=== PATIENT | female | born 1930 | race Caucasian/White ===

== ENCOUNTER 2017-09-05 08:00 | Outpatient (CLI) | payer MEDICARE, OTHER ==
[2017-09-05 19:12] LABS: BASOPHILS # (AUTO) 0.1 10^3/uL (0.0-0.1); BASOPHILS % (AUTO) 0.7 %; EOSINOPHILS # (AUTO) 0.1 10^3/uL (0.0-0.7); EOSINOPHILS % (AUTO) 1.7 %; HCT - HEMATOCRIT 43.3 % (37.0-47.0); HGB - HEMOGLOBIN 14.3 g/dL (12.0-16.0); LYMPHOCYTES # (AUTO) 2.8 10^3/uL (1.5-3.5); LYMPHOCYTES % (AUTO) 33.5 %; MEAN CORPUSCULAR HEMOGLOBIN 31.5 pg (27.0-31.0); MEAN CORPUSCULAR VOLUME 95.6 fL (81.0-99.0); MEAN PLATELET VOLUME 8.2 fL (7.9-10.8); MONOCYTES # (AUTO) 0.8 10^3/uL (0.0-1.0); MONOCYTES % (AUTO) 9.9 %; NEUTROPHILS # (AUTO) 4.5 10^3/uL (1.5-6.6); NEUTROPHILS % (AUTO) 54.2 %; NUCLEATED RED BLOOD CELLS AUTO 0.1 /100WBC; RED BLOOD COUNT 4.53 10^6/uL (4.20-5.40); RED CELL DISTRIBUTION WIDTH 13.7 % (12.0-15.0); UNCORRECTED WHITE BLOOD COUNT 8.3 x10^3/uL; WHITE BLOOD COUNT 8.3 x10^3/uL (4.8-10.8)
[2017-09-05 19:37] LABS: ALBUMIN/GLOBULIN RATIO 1.1 (1.0-2.2); BILIRUBIN,TOTAL 0.3 mg/dL (0.2-1.0); BUN - BLOOD UREA NITROGEN 17 mg/dL (6-20); CARBON DIOXIDE - CO2 26 mmol/L (21-32); CHLORIDE 100 mmol/L (101-111); CHOL/HDL RATIO 2.8 (<4.4); CHOLESTEROL 196 mg/dL; CREATININE 0.9 mg/dL (0.4-1.0); GFR - MDRD 59 (>89); GLUCOSE 74 mg/dL (70-100); HDL CHOLESTEROL 71 mg/dL; POTASSIUM 3.9 mmol/L (3.5-5.0); SODIUM 135 mmol/L (135-145); TOTAL PROTEIN 7.2 g/dL (6.7-8.2); TRIGLYCERIDES 263 mg/dL; VLDL CHOLESTEROL 53 mg/dL
== END 2017-09-05 08:01 | disposition home or self-care (01) ==
LOC: LAB.WCP 08:00
PROVIDERS: ATTEND Family Medicine
DX: K21.9 Gastro-esophageal reflux disease without esophagitis (principal); E78.5 Hyperlipidemia, unspecified
CPT/HCPCS: 36415; 80053; 80061; 85025

== ENCOUNTER 2017-09-30 08:37 | Outpatient (CLI) | payer MEDICARE, OTHER ==
--- NOTE | 2017-09-30 09:47 | Ultrasound Report ---
RIGHT LEG VENOUS DUPLEX: 09/30/2017 CLINICAL INDICATION: Varicose veins. TECHNIQUE: Real-time sonographic vascular imaging was performed by the toys inspector through the right lower extremity utilizing both color flow and Doppler spectral analysis. Multiple customer service representative teller static images were saved for review. FINDINGS: A right lower extremity venous sonogram is performed revealing the common femoral, superficial femoral, profunda femoris, and popliteal veins to be adequately visualized without intraluminal defects. There is normal venous compression, augmentation, phasicity, and spontaneity of venous flow. In the calf, the visualized more cephalad portions of posterior tibial and peroneal veins are grossly compressible, without filling defects. Superficial varicosities are seen, without evidence of thrombosis. IMPRESSION: NO EVIDENCE OF DEEP VENOUS THROMBOSIS. JOB #: [id number] EXT JOB #: [id number] MTDIveth
== END 2017-09-30 08:38 | disposition home or self-care (01) ==
LOC: DI 08:37
PROVIDERS: ATTEND Family Medicine
DX: I83.91 Asymptomatic varicose veins of right lower extremity (principal)

== ENCOUNTER 2017-11-23 09:09 | Emergency (ER) | payer MEDICARE, OTHER ==
[2017-11-23 09:45] LABS: BASOPHILS % (AUTO) 0.6 %; EOSINOPHILS # (AUTO) 0.1 10^3/uL (0.0-0.7); EOSINOPHILS % (AUTO) 1.8 %; HGB - HEMOGLOBIN 13.8 g/dL (12.0-16.0); LYMPHOCYTES # (AUTO) 1.8 10^3/uL (1.5-3.5); LYMPHOCYTES % (AUTO) 30.5 %; MEAN CORPUSCULAR HEMOGLOBIN 31.6 pg (27.0-31.0); MEAN CORPUSCULAR HGB CONC 34.3 g/dL (32.0-36.0); MEAN CORPUSCULAR VOLUME 92.2 fL (81.0-99.0); MEAN PLATELET VOLUME 7.5 fL (7.9-10.8); MONOCYTES # (AUTO) 0.4 10^3/uL (0.0-1.0); MONOCYTES % (AUTO) 7.6 %; NEUTROPHILS # (AUTO) 3.4 10^3/uL (1.5-6.6); NEUTROPHILS % (AUTO) 59.5 %; PLT - PLATELET COUNT 184 10^3/uL (130-450); RED BLOOD COUNT 4.38 10^6/uL (4.20-5.40); RED CELL DISTRIBUTION WIDTH 13.3 % (12.0-15.0); WHITE BLOOD COUNT 5.8 x10^3/uL (4.8-10.8)
--- NOTE | 2017-11-23 09:52 | ED Physician Documentation ---
History of Present Illness - Stated complaint Stated Complaint: DIZZY - Chief complaint Chief Complaint: General - History obtained from History obtained from: Patient - History of Present Illness Timing: How many weeks ago (2) - Additonal information Additional information: 87-year-old female has not been feeling well since the day before . So about 2 weeks of not feeling well she did have some diarrhea for 2 days and she has developed some dizziness that is worse today than yesterday. She thought she had been drinking enough fluids to stay hydrated. Review of Systems Constitutional: reports: Myalgias, Fatigue. denies: Fever Eyes: denies: Decreased vision Ears: denies: Ear pain Nose: reports: Congestion Throat: denies: Sore throat Cardiac: denies: Chest pain / pressure, Palpitations Respiratory: reports: Cough. denies: Dyspnea GI: reports: Diarrhea. denies: Abdominal Pain, Nausea, Vomiting : denies: Dysuria, Frequency Skin: denies: Rash Musculoskeletal: denies: Neck pain, Back pain, Extremity pain Neurologic: reports: Generalized weakness. 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 : Incontinence Musculoskeletal: Osteoarthritis, Osteoporosis Derm: None - Past Surgical History Past Surgical History: Yes General: Cholecystectomy Ortho: Knee replacement /BUSINESS TECHNOLOGY PROFESSOR: Hysterectomy - Present Medications Home Medications: Ambulatory Orders Medication Instructions Recorded Confirmed Estrogens, Conjugated [Premarin] 0.625 mg ORAL DAILY 10/25/15 10/25/15 Omeprazole [PriLOSEC] 20 mg ORAL BID 10/25/15 10/25/15 Oxybutynin [Oxytrol] 1 patch TOP DAILY 10/25/15 10/25/15 Simvastatin 10 mg ORAL QPM 10/25/15 10/25/15 Cefdinir 300 mg PO BID #14 capsule 11/23/17 - Allergies Allergies/Adverse Reactions: Allergies Allergy/AdvReac Type Severity Reaction Status Date / Time cabbage Allergy Unknown Verified 11/23/17 12:48 ciprofloxacin Allergy Unknown Verified 11/23/17 12:48 clarithromycin Allergy Unknown Verified 11/23/17 12:48 clindamycin Allergy Unknown Verified 11/23/17 12:48 nitrofurantoin Allergy Unknown Verified 11/23/17 12:48 [From Macrobid] Penicillins Allergy Unknown Verified 11/23/17 12:48 shellfish derived Allergy Unknown Verified 11/23/17 12:48 Cbptppp-Dbi-Hdc Reductase Allergy Unknown Verified 11/23/17 12:48 Inhibitor Sulfa (Sulfonamide Allergy Unknown Verified 11/23/17 12:48 Antibiotics) tetracycline Allergy Unknown Verified 11/23/17 12:48 adhesive AdvReac Severe Rash Verified 11/23/17 09:15 breast markers Allergy Unknown Uncoded 11/23/17 12:48 lettuce Allergy Unknown Uncoded 11/23/17 12:48 - Social History Does the pt smoke?: No Smoking Status: Never smoker Does the pt drink ETOH?: No Does the pt have substance abuse?: No - Immunizations Immunizations are current?: Yes PD ED PE NORMAL - Vitals Vital signs reviewed: Yes (hypertensive) - General General: No acute distress, Well developed/nourished - HEENT HEENT: Atraumatic, PERRL, EOMI, Other (mild inflamation in the left TM. The mucous membranes are dry. ) - Neck Neck: Supple, no meningeal sign, No bony TTP - Cardiac Cardiac: RRR, No murmur - Respiratory Respiratory: No respiratory distress, Clear bilaterally - Abdomen Abdomen: Soft, Non tender - Back Back: No CVA TTP, No spinal TTP - Derm Derm: Normal color, Warm and dry, No rash - Extremities Extremities: No deformity, No edema - Neuro Neuro: No motor deficit, No sensory deficit Eye Opening: Spontaneous Motor: Obeys Commands Verbal: Oriented GCS Score: 15 - Psych Psych: Normal mood, Normal affect Results - Vitals Vitals: Vital Signs - 24 hr 11/23/17 11/23/17 11/23/17 09:12 10:47 13:53 Temperature 36.8 C 36.4 C L 35.9 C L Heart Rate 88 68 73 Respiratory 20 16 16 Rate Blood Pressure 145/72 H 125/62 114/65 O2 Saturation 96 97 98 Oxygen O2 Source Room air - EKG (time done) 0923 Rate: Rate (enter#) (77) Rhythm: NSR Ischemia: Q waves Compare to prior EKG: Unchanged from prior EKG (10-25-12) Computer interpretation: Agree with computer - Labs Labs: Laboratory Tests 11/23/17 11/23/17 11/23/17 09:38 09:38 11:19 WBC 5.8 RBC 4.38 Hgb 13.8 Hct 40.3 MCV 92.2 MCH 31.6 H MCHC 34.3 RDW 13.3 Plt Count 184 MPV 7.5 L Neut # 3.4 Lymph # 1.8 Waller # 0.4 Eos # 0.1 Baso # 0.0 Absolute Nucleated RBC 0.00 Nucleated RBC % 0.0 Sodium 140 Potassium 3.4 L Chloride 106 Carbon Dioxide 25 Anion Gap 9.0 BUN 14 Creatinine 0.8 Estimated GFR (MDRD) 68 L Glucose 99 Calcium 8.7 Total Bilirubin 0.4 AST 26 ALT 21 Alkaline Phosphatase 58 Total Protein 6.5 L Albumin 3.5 Globulin 3.0 Albumin/Globulin Ratio 1.2 Lipase 19 L Urine Color YELLOW Urine Clarity HAZY Urine pH 6.5 Ur Specific [place] 1.010 Urine Protein NEGATIVE Urine Glucose (UA) NEGATIVE Urine Ketones NEGATIVE Urine Occult Blood TRACE-LYSE Urine Nitrite NEGATIVE Urine Bilirubin NEGATIVE Urine Urobilinogen 0.2 (NORMAL) Ur Leukocyte Esterase MODERATE H Urine RBC 0-5 Urine WBC 6-10 H Ur Squamous Epith Cells MOD Squamous H Urine Bacteria Few Ur Microscopic Review INDICATED Urine Culture Comments NOT INDICATED PD MEDICAL DECISION MAKING - ED course Complexity details: reviewed results, re-evaluated patient, considered differential, d/w patient ED course: 87-year-old female with symptoms of lightheadedness as dehydration and urinary tract infection. She is administered saline and Rocephin. Departure - Departure Disposition: 01 Home, Self Care Clinical Impression: Dehydration Urinary tract infection Qualifiers: Urinary tract infection type: acute cystitis Hematuria presence: without hematuria Qualified Code(s): N30.00 - Acute cystitis without hematuria Condition: Stable Instructions: ED Dehydration, ED UTI Cystitis Female Follow-Up: René Holland DO [Primary Care Provider] - Prescriptions: Cefdinir 300 mg PO BID #14 capsule Discharge Date/Time: 11/23/17 14:17
[2017-11-23 09:57] LABS: ALBUMIN 3.5 g/dL (3.2-5.5); ALBUMIN/GLOBULIN RATIO 1.2 (1.0-2.2); BILIRUBIN,TOTAL 0.4 mg/dL (0.2-1.0); CALCIUM 8.7 mg/dL (8.5-10.3); CREATININE 0.8 mg/dL (0.4-1.0); TOTAL PROTEIN 6.5 g/dL (6.7-8.2)
[2017-11-23 11:22] LABS: BILIRUBIN,URINE NEGATIVE (NEGATIVE); GLUCOSE, URINE (UA) NEGATIVE (NEGATIVE); KETONES,URINE (UA) NEGATIVE (NEGATIVE); LEUKOCYTE ESTERASE, URINE MODERATE (NEGATIVE); NITRITE,URINE NEGATIVE (NEGATIVE); OCCULT BLOOD,URINE TRACE-LYSE (NEGATIVE); PH,URINE 6.5 PH (5.0-7.5); PROTEIN,URINE NEGATIVE (NEGATIVE); UROBILINOGEN,URINE 0.2 (NORMAL) E.U./dL (NORMAL)
[2017-11-23 11:24] LABS: CLARITY,URINE HAZY (CLEAR)
[2017-11-23 11:28] LABS: BACTERIA,URINE Few /HPF (None Seen); RBC,URINE 0-5 /HPF (0-5); SQUAMOUS EPITHELIAL CELL,UR MOD Squamous (<= Few)
[2017-11-23] MEDS ORDERED: POTASSIUM BICARB 25 MEQ TABLET PO STA (11:28)
[2017-11-23] MEDS ORDERED: SODIUM CHLORIDE 0.9% 1,000 ML IV ONE (11:32)
[2017-11-23] MEDS ORDERED: cefTRIAXone 1 GM in SODIUM CHLORIDE 0.9% MINIBAG 100 ML IV STA (11:47)
[2017-11-23 13:54] VITALS: BP 114/65
== END 2017-11-23 14:17 | disposition home or self-care (01) ==
LOC: ED 09:09
DX: N30.00 Acute cystitis without hematuria (principal); I10 Essential (primary) hypertension; E78.00 Pure hypercholesterolemia, unspecified; E86.0 Dehydration; R42 Dizziness and giddiness; Z96.659 Presence of unspecified artificial knee joint
CPT/HCPCS: 36415; 80053; 81001; 83690; 85025; 93005; 96365; 96366; 99283; 99284; A9270; 81003; 87086

== ENCOUNTER 2017-12-13 08:52 | Outpatient (CLI) | payer MEDICARE, OTHER | END 2017-12-13 08:53 | disposition short-term general hospital (02) | LOC: EMS 08:52 | PROVIDERS: ATTEND Surgery | DX: R42 Dizziness and giddiness (principal); R53.1 Weakness | CPT/HCPCS: A0425; A0429; A0888 ==

== ENCOUNTER 2018-03-18 08:00 | Outpatient (CLI) | payer MEDICARE, OTHER ==
[2018-03-18 14:06] LABS: HGB - HEMOGLOBIN 13.5 g/dL (12.0-16.0); MEAN CORPUSCULAR HEMOGLOBIN 32.1 pg (27.0-31.0); MEAN CORPUSCULAR VOLUME 94.5 fL (81.0-99.0); MEAN PLATELET VOLUME 8.3 fL (7.9-10.8); RED BLOOD COUNT 4.2 10^6/uL (4.20-5.40); RED CELL DISTRIBUTION WIDTH 13.5 % (12.0-15.0); WHITE BLOOD COUNT 5.7 x10^3/uL (4.8-10.8)
[2018-03-18 14:08] LABS: RHEUMATOID FACTOR NEGATIVE (Negative)
== END 2018-03-18 08:01 | disposition home or self-care (01) ==
LOC: LAB.WCP 08:00
PROVIDERS: ATTEND Family Medicine
DX: M25.50 Pain in unspecified joint (principal)
CPT/HCPCS: 36415; 85651; 86140; 86200; 86430

== ENCOUNTER 2018-04-07 11:07 | Outpatient (CLI) | payer MEDICARE, OTHER ==
[2018-04-07 18:55] LABS: BASOPHILS % (AUTO) 0.5 %; EOSINOPHILS # (AUTO) 0.1 10^3/uL (0.0-0.7); EOSINOPHILS % (AUTO) 0.8 %; HGB - HEMOGLOBIN 13.5 g/dL (12.0-16.0); LYMPHOCYTES # (AUTO) 1.9 10^3/uL (1.5-3.5); LYMPHOCYTES % (AUTO) 31.2 %; MEAN CORPUSCULAR HEMOGLOBIN 30.9 pg (27.0-31.0); MEAN CORPUSCULAR HGB CONC 32.1 g/dL (32.0-36.0); MEAN CORPUSCULAR VOLUME 96.3 fL (81.0-99.0); MEAN PLATELET VOLUME 7.9 fL (7.9-10.8); MONOCYTES # (AUTO) 0.5 10^3/uL (0.0-1.0); MONOCYTES % (AUTO) 7.4 %; NEUTROPHILS # (AUTO) 3.7 10^3/uL (1.5-6.6); NEUTROPHILS % (AUTO) 60.1 %; PLT - PLATELET COUNT 226 10^3/uL (130-450); RED BLOOD COUNT 4.38 10^6/uL (4.20-5.40); WHITE BLOOD COUNT 6.2 x10^3/uL (4.8-10.8)
[2018-04-07 19:27] LABS: ALBUMIN 3.8 g/dL (3.2-5.5); ALBUMIN/GLOBULIN RATIO 1.1 (1.0-2.2); BILIRUBIN,TOTAL 0.6 mg/dL (0.2-1.0); CALCIUM 8.9 mg/dL (8.5-10.3); CREATININE 0.8 mg/dL (0.4-1.0); TOTAL PROTEIN 7.2 g/dL (6.7-8.2)
== END 2018-04-07 11:08 ==
LOC: LAB.WCP 11:07
PROVIDERS: ATTEND Family Medicine
DX: K29.70 Gastritis, unspecified, without bleeding (principal)
CPT/HCPCS: 36415; 80053; 83690; 85025

== ENCOUNTER 2018-04-29 10:03 | Day surgery (SDC) | END 2018-04-29 10:04 | disposition home or self-care (01) | CPT/HCPCS: 43239; 43251; 88305; 88342; A9270; J7120 ==

== ENCOUNTER 2018-05-22 09:19 | Outpatient (CLI) | payer MEDICARE, OTHER ==
--- NOTE | 2018-05-22 12:09 | Ultrasound Report ---
Procedure Date: 05/22/2018 Accession Number: [id number] / [id number] Procedure: US - Head or Neck Soft Tissue CPT Code: FULL RESULT: EXAM: Head or Neck Soft Tissue DATE: 05/22/2018 10:28 AM CLINICAL HISTORY: DYSPHAGIA, PHARYNGEAL PHASE COMPARISON: None. TECHNIQUE: Real time sonographic imaging of the thyroid was performed by the mica builder. Multiple inbound sales representative static images were saved for review. FINDINGS: THYROID GLAND: Right Lobe: 3.6 x 2.1 x 1.6 cm, volume 6 cc. Normal background echotexture. Right Lobe Nodules: Multiple small nodules. The largest, in the midportion, measures 0.9 x 0.7 x 0.5 cm. It is isoechoic to the thyroid parenchyma. Left Lobe: 3.0 x 1.2 x 1.2 cm, volume 2 cc. Normal background echotexture. Left Lobe Nodules: Multiple small nodules. The largest, in the midportion, measures 0.9 x 0.6 x 0.5 cm, and is hypoechoic relative to the background thyroid parenchyma. Isthmus: 0.2 cm AP. Isthmic Nodules: None. LYMPH NODES: No adenopathy demonstrated in the central or lateral compartment. OTHER: None. IMPRESSION: 1. Tiny bilateral thyroid nodules. No dominant suspicious nodule is identified. Management recommendations are based on 2015 [place] [employer] Management Guidelines for Adult Patients with Thyroid Nodules and Differentiated Thyroid Cancer. RADIA
== END 2018-05-22 09:20 | disposition home or self-care (01) ==
LOC: DI 09:19
PROVIDERS: ATTEND Surgery
DX: J39.2 Other diseases of pharynx (principal); R13.13 Dysphagia, pharyngeal phase; E04.2 Nontoxic multinodular goiter
CPT/HCPCS: 76536

== ENCOUNTER 2020-08-26 11:08 | Outpatient (CLI) | payer MEDICARE, OTHER | END 2020-08-26 11:09 | disposition short-term general hospital (02) | LOC: EMS 11:08 | PROVIDERS: ATTEND Surgery | DX: R10.13 Epigastric pain (principal); M54.2 Cervicalgia | CPT/HCPCS: A0425; A0427 ==